=== PATIENT | male | born 1960 | race Caucasian/White ===

== ENCOUNTER → 2021-03-15 | Outpatient (CLI) | payer OTHER ==
[~2021-03-15] MED LIST: CHOL10002 PO; CYCL10 PO; IBUP400 PO; LISI5 PO; METF500 PO; METH5 PO; PRAV20 PO; WARF10 PO; WARF5 PO
[2021-03-15 16:26] LABS: Hematocrit 41.9 % (37.0-53.0); Mean Corpuscular HGB 32.9 pg (26.0-34.0); Mean Corpuscular HGB Conc 35.8 g/dL (31.5-36.5); Mean Corpuscular Volume 92 fL (80-100); Platelet Count 182 K/mm3 (150-400); RDW Coefficient Variation 12.9 % (11.7-14.2); RDW Standard Deviation 43.2 fL (35.1-46.3); Red Blood Cell Count 4.56 M/mm3 (4.30-5.90); White Blood Cell Count 3.56 K/mm3 (4.00-11.30)
[2021-03-15 16:28] LABS: Bun/Creatinine Ratio 14.7 (12.0-20.0); Calcium, Blood 9.4 mg/dL (8.5-10.1); Creatinine, Blood 1.29 mg/dL (0.60-1.20)
[2021-03-15 17:33] LABS: BAND PERCENT MAN 11 % (0-8); BASOPHILS PERCENT MAN 0 % (0-2); EOSINOPHILS PERCENT MAN 0 % (0-6); LYMPHOCYTES ABSOLUTE MAN 0.71 K/mm3 (0.84-5.20); LYMPHOCYTES PERCENT MAN 20 % (21-46); MONOCYTES ABSOLUTE MAN 0.24 K/mm3 (0.16-1.47); MONOCYTES PERCENT MAN 7 % (4-13); NEUTROPHILS ABSOLUTE MAN 2.59 K/mm3 (1.96-9.15); SEG NEUTROPHILS PERCENT MAN 62 % (41-73); TOTAL CELLS COUNTED 100
== END | disposition home or self-care (01) ==
LOC: LAB SHORT 16:20
PROVIDERS: Physician Assistant Surgical
DX: R53.83 Other fatigue (principal)
CPT/HCPCS: 80048; 85025

== ENCOUNTER 2021-08-14 16:45 | Inpatient (IN) | payer OTHER ==
[~2021-08-14] VITALS: Ht 172.7 cm; Wt 84.5 kg
[~2021-08-14 16:45] MED LIST changes: -GLIP2.5ER PO; -K-Phos Origina500 MG PO; -MULVITA PO
[2021-08-14 17:47] LABS: Source, Urine Clean Catch
[2021-08-14 17:51] LABS: Appearance, Urine Clear (Clear); Blood, Urine 4+ (Neg); Color, Urine Amber (P-Yellow); Glucose Qualitative, Urine 4+ (Neg); Ketones, Urine 3+ (Neg); Leukocyte Esterase, Urine Neg (Neg); Nitrite, Urine Neg (Neg); Protein, Urine 3+ (Neg); Urobilinogen, Urine 1+ (Normal)
[2021-08-14 18:01] LABS: Bilirubin, Urine 1+ (Neg)
[2021-08-14 18:02] LABS: White Blood Cells, Urine 0-2 /hpf (0-5)
[2021-08-14 18:03] LABS: Bacteria Few /hpf; Squamous Epithelial Cells Not Seen /hpf (Few); Transitional Epithelial Cells Rare /hpf (0-Rare)
[2021-08-14 18:16] LABS: BASOPHILS ABSOLUTE AUTO 0.03 K/mm3 (0.00-0.23); BASOPHILS PERCENT AUTO 1 % (0-2); EOSINOPHILS ABSOLUTE AUTO 0.03 K/mm3 (0.00-0.68); EOSINOPHILS PERCENT AUTO 1 % (0-6); Hematocrit 38.7 % (37.0-53.0); Hemoglobin 14.4 g/dL (13.5-17.5); IMMATURE GRAN ABSOLUTE AUTO 0.02 K/mm3 (0.00-0.10); IMMATURE GRAN PERCENT AUTO 0 % (0-1); LYMPHOCYTES ABSOLUTE AUTO 0.79 K/mm3 (0.84-5.20); LYMPHOCYTES PERCENT AUTO 15 % (21-46); MONOCYTES ABSOLUTE AUTO 0.64 K/mm3 (0.16-1.47); MONOCYTES PERCENT AUTO 12 % (4-13); Mean Corpuscular HGB 36.6 pg (26.0-34.0); Mean Corpuscular HGB Conc 37.2 g/dL (31.5-36.5); Mean Corpuscular Volume 99 fL (80-100); Mean Platelet Volume 10.9 fL (9.1-12.4); NEUTROPHILS ABSOLUTE AUTO 3.87 K/mm3 (1.96-9.15); NEUTROPHILS PERCENT AUTO 72 % (41-73); Platelet Count 187 K/mm3 (150-400); RDW Coefficient Variation 12.5 % (11.7-14.2); RDW Standard Deviation 45.5 fL (35.1-46.3); Red Blood Cell Count 3.93 M/mm3 (4.30-5.90); White Blood Cell Count 5.38 K/mm3 (4.00-11.30)
[2021-08-14 18:56] LABS: Magnesium, Blood 2.5 mg/dL (1.6-2.4)
[2021-08-14 19:03] LABS: Bun/Creatinine Ratio 20.8 (12.0-20.0); Calcium, Blood 11.8 mg/dL (8.5-10.1); Creatinine, Blood 2.5 mg/dL (0.60-1.20); Potassium, Blood 6.3 mmol/L (3.5-5.5)
[2021-08-14 21:38] LABS: International Normalized Ratio 1.1; Prothrombin Time Results 11.5 Sec (9.7-11.5)
[2021-08-14 21:55] LABS: Albumin, Blood 4.8 g/dL (3.4-5.0); Anion Gap 14 mmol/L (6-16); Blood Urea Nitrogen 52 mg/dL (8-24); Bun/Creatinine Ratio 23.1 (12.0-20.0); CO2, Blood 26 mmol/L (21-32); Calcium, Blood 11.3 mg/dL (8.5-10.1); Chloride, Blood 91 mmol/L (98-108); Creatinine, Blood 2.25 mg/dL (0.60-1.20); Glomerular Filtration Rate 33 (60-); Glucose, Blood 232 mg/dL (70-99); Phosphorus, Blood 4.4 mg/dL (2.5-4.9); Potassium, Blood 4.7 mmol/L (3.5-5.5); Sodium, Blood 131 mmol/L (136-145)
[2021-08-15 05:33] LABS: BASOPHILS ABSOLUTE AUTO 0.03 K/mm3 (0.00-0.23); BASOPHILS PERCENT AUTO 1 % (0-2); EOSINOPHILS ABSOLUTE AUTO 0.15 K/mm3 (0.00-0.68); EOSINOPHILS PERCENT AUTO 4 % (0-6); Hematocrit 35.9 % (37.0-53.0); Hemoglobin 12.8 g/dL (13.5-17.5); IMMATURE GRAN ABSOLUTE AUTO 0.01 K/mm3 (0.00-0.10); IMMATURE GRAN PERCENT AUTO 0 % (0-1); LYMPHOCYTES ABSOLUTE AUTO 1.09 K/mm3 (0.84-5.20); LYMPHOCYTES PERCENT AUTO 28 % (21-46); MONOCYTES PERCENT AUTO 13 % (4-13); Mean Corpuscular HGB 36.1 pg (26.0-34.0); Mean Corpuscular HGB Conc 35.7 g/dL (31.5-36.5); Mean Corpuscular Volume 101 fL (80-100); Mean Platelet Volume 10.8 fL (9.1-12.4); NEUTROPHILS ABSOLUTE AUTO 2.15 K/mm3 (1.96-9.15); NEUTROPHILS PERCENT AUTO 55 % (41-73); Platelet Count 125 K/mm3 (150-400); RDW Coefficient Variation 12.2 % (11.7-14.2); RDW Standard Deviation 45.1 fL (35.1-46.3); Red Blood Cell Count 3.55 M/mm3 (4.30-5.90); White Blood Cell Count 3.93 K/mm3 (4.00-11.30)
[2021-08-15 05:47] LABS: International Normalized Ratio 1.14; Prothrombin Time Results 11.9 Sec (9.7-11.5)
[2021-08-15 06:00] LABS: Albumin, Blood 4.2 g/dL (3.4-5.0); Albumin/Globulin Ratio 1.2 (0.8-1.8); Bilirubin, Total 1.7 mg/dL (0.1-1.0); Bun/Creatinine Ratio 24.3 (12.0-20.0); Calcium, Blood 9.9 mg/dL (8.5-10.1); Creatinine, Blood 2.14 mg/dL (0.60-1.20); Globulin, Blood 3.6 g/dL (2.2-4.0); Potassium, Blood 4.4 mmol/L (3.5-5.5); Total Protein, Blood 7.8 g/dL (6.4-8.2)
--- NOTE | 2021-08-15 06:19 | NUR ---
SHIFT SUMMARY PATIENT ARRIVED TO ROOM 312 AT 2148. HE IS ALERT AND ORIENTED. MEDICATED PER EMAR FOR HEADACHE. CIWA WAS NEGATIVE. PATIENT STEADY ON HIS FEET AND INDEPENDENT IN ROOM. PATIENT SLEPT WELL OVERNIGHT. NO ACUTE ISSUES NOTED. CALL LIGHT WITHIN REACH. REPORT GIVEN TO ONCOMING RN.
--- NOTE | 2021-08-15 16:34 | NUR ---
SHIFT SUMMARY PT A&OX4 AND IN PLEASENT MOOD T/O SHIFT. @ BEDSIDE T/O SHIFT. CIWA NEG, PT REFUSED LIBRIUM WHEN OFFERED-DENIES SYMPTOMS/ANXIETY. LAST DRINK YESTERDAY @ APPROX. 10AM. VSS. CALL LIGHT W/IN REACH. NS @ 75 INFUSING. BLOOD GLUCOSE REPORTED TO - SLIDE SCALE ADJUSTED TO LOW FROM HIGH COVERAGE.
[2021-08-15 16:48] LABS: Albumin, Blood 3.9 g/dL (3.4-5.0); Anion Gap 7 mmol/L (6-16); Blood Urea Nitrogen 48 mg/dL (8-24); CO2, Blood 28 mmol/L (21-32); Calcium, Blood 9.3 mg/dL (8.5-10.1); Chloride, Blood 93 mmol/L (98-108); Creatinine, Blood 1.78 mg/dL (0.60-1.20); Glomerular Filtration Rate 43 (60-); Glucose, Blood 232 mg/dL (70-99); Phosphorus, Blood 3.4 mg/dL (2.5-4.9); Potassium, Blood 4.5 mmol/L (3.5-5.5); Sodium, Blood 128 mmol/L (136-145)
--- NOTE | 2021-08-16 04:43 | NUR ---
SHIFT SUMMARY ADMITTED FOR YENNY. FULL CODE. CIWAS Q 4 HAVE BEEN 0 THIS SHIFT. PT DENIES S/SX OF WITHDRAWAL. NS INFUSING @ 75 ML/HR. RENAL DIET. ACHS CHEMSTICKS. A&O X4. INDEPENDENT IN ROOM. ON RA. LOW SS. HX: ETOH, DM2.
[2021-08-16 05:33] LABS: International Normalized Ratio 1.16; Prothrombin Time Results 12.1 Sec (9.7-11.5)
[2021-08-16 05:39] LABS: Albumin, Blood 3.9 g/dL (3.4-5.0); Anion Gap 9 mmol/L (6-16); Blood Urea Nitrogen 43 mg/dL (8-24); Bun/Creatinine Ratio 29.9 (12.0-20.0); CO2, Blood 27 mmol/L (21-32); Chloride, Blood 97 mmol/L (98-108); Creatinine, Blood 1.44 mg/dL (0.60-1.20); Glomerular Filtration Rate 56 (60-); Glucose, Blood 205 mg/dL (70-99); Potassium, Blood 4.1 mmol/L (3.5-5.5); Sodium, Blood 133 mmol/L (136-145)
[2021-08-16 12:40] LABS: Albumin, Blood 3.9 g/dL (3.4-5.0); Anion Gap 7 mmol/L (6-16); Blood Urea Nitrogen 39 mg/dL (8-24); Bun/Creatinine Ratio 30.2 (12.0-20.0); CO2, Blood 26 mmol/L (21-32); Calcium, Blood 8.9 mg/dL (8.5-10.1); Chloride, Blood 96 mmol/L (98-108); Creatinine, Blood 1.29 mg/dL (0.60-1.20); Glomerular Filtration Rate 64 (60-); Glucose, Blood 329 mg/dL (70-99); Phosphorus, Blood 2.2 mg/dL (2.5-4.9); Potassium, Blood 4.4 mmol/L (3.5-5.5); Sodium, Blood 129 mmol/L (136-145)
[2021-08-16] MEDS ORDERED: MULVITA PO (15:18)
[2021-08-16] MEDS ORDERED: GLIP2.5ER PO (15:19)
[2021-08-16] MEDS ORDERED: K-Phos Origina500 MG PO (15:26)
[2021-08-16] MEDS ORDERED: WARF10 PO (15:27)
--- NOTE | 2021-08-16 16:48 | NUR ---
DISCHARGE PT A&OX4 @ TIME OF DC. SPOUSE @ BEDSIDE. PT PROVIDED W/ WRITTEN AND VERBAL DIRECTION, PT VERBALIZED UNDERSTANDING. IV DC'ED. PT ENCOURAGED TO ESTABLISH PCP, IMPORTANCE OF REPEAT INR W/ PRESCRIBED COUMADIN REENFORCED. WC ESCORT TO [place], SPOUSE TO PROVIDE TRANSPORT.
== END 2021-08-16 16:45 | disposition home or self-care (01) | DRG 683 ==
LOC: ER 16:45 → MEDS 20:08
PROVIDERS: Family Medicine; Internal Medicine; Physician Assistant; Student in an Organized Health Care Education/Training Program; ADMIT Internal Medicine
DX: N17.9 Acute kidney failure, unspecified (principal); D68.59 Other primary thrombophilia; E87.1 Hypo-osmolality and hyponatremia; E87.5 Hyperkalemia; E86.0 Dehydration; E11.65 Type 2 diabetes mellitus with hyperglycemia; E83.39 Other disorders of phosphorus metabolism; R74.01 Elevation of levels of liver transaminase levels; F10.10 Alcohol abuse, uncomplicated; I10 Essential (primary) hypertension; Z79.01 Long term (current) use of anticoagulants; Z91.14 Patient's other noncompliance with medication regimen; Z98.890 Other specified postprocedural states; Z87.891 Personal history of nicotine dependence; Z88.8 Allergy status to other drugs, medicaments and biological substances; Z79.84 Long term (current) use of oral hypoglycemic drugs; Z79.899 Other long term (current) drug therapy
CPT/HCPCS: 36415; 80048; 80053; 80069; 81001; 82010; 82947; 83036; 83735; 83930; 83935; 84300; 84484; 85025; 85610; 93005; 93010; 96361; 96374; 99284-25; A9270; J1650; J1815; J2405; J7030; J7060; J7799

== ENCOUNTER → 2021-08-14 | Outpatient (CLI) | payer OTHER ==
[~2021-08-14] MED LIST changes: +GLIP2.5ER PO; +K-Phos Origina500 MG PO; +MULVITA PO
[2021-08-14 16:06] LABS: BASOPHILS ABSOLUTE AUTO 0.03 K/mm3 (0.00-0.23); BASOPHILS PERCENT AUTO 1 % (0-2); EOSINOPHILS ABSOLUTE AUTO 0.05 K/mm3 (0.00-0.68); EOSINOPHILS PERCENT AUTO 1 % (0-6); Hematocrit 39.5 % (37.0-53.0); Hemoglobin 14.3 g/dL (13.5-17.5); IMMATURE GRAN ABSOLUTE AUTO 0.03 K/mm3 (0.00-0.10); IMMATURE GRAN PERCENT AUTO 1 % (0-1); LYMPHOCYTES ABSOLUTE AUTO 0.93 K/mm3 (0.84-5.20); LYMPHOCYTES PERCENT AUTO 15 % (21-46); MONOCYTES ABSOLUTE AUTO 0.72 K/mm3 (0.16-1.47); MONOCYTES PERCENT AUTO 12 % (4-13); Mean Corpuscular HGB 36.1 pg (26.0-34.0); Mean Corpuscular HGB Conc 36.2 g/dL (31.5-36.5); Mean Corpuscular Volume 100 fL (80-100); Mean Platelet Volume 10.6 fL (9.1-12.4); NEUTROPHILS ABSOLUTE AUTO 4.52 K/mm3 (1.96-9.15); NEUTROPHILS PERCENT AUTO 72 % (41-73); Platelet Count 204 K/mm3 (150-400); RDW Coefficient Variation 12.6 % (11.7-14.2); RDW Standard Deviation 46.1 fL (35.1-46.3); Red Blood Cell Count 3.96 M/mm3 (4.30-5.90); White Blood Cell Count 6.28 K/mm3 (4.00-11.30)
[2021-08-14 16:18] LABS: Albumin, Blood 5.3 g/dL (3.4-5.0); Albumin/Globulin Ratio 1.3 (0.8-1.8); Bilirubin, Total 2.4 mg/dL (0.1-1.0); Bun/Creatinine Ratio 16.7 (12.0-20.0); Calcium, Blood 11.8 mg/dL (8.5-10.1); Creatinine, Blood 2.93 mg/dL (0.60-1.20); Globulin, Blood 4.1 g/dL (2.2-4.0); Total Protein, Blood 9.4 g/dL (6.4-8.2)
[2021-08-14 16:20] LABS: Potassium, Blood 6.7 mmol/L (3.5-5.5)
== END | disposition home or self-care (01) ==
LOC: LAB SHORT 16:03
PROVIDERS: Chiropractor
DX: I10 Essential (primary) hypertension (principal)
CPT/HCPCS: 80053; 85025

== ENCOUNTER 2022-01-13 00:57 | Emergency (ER) | payer OTHER ==
[~2022-01-13 00:57] MED LIST changes: +GLIP2.5ER PO; +K-Phos Origina500 MG PO; +MULVITA PO
[2022-01-13] MEDS ORDERED: CHLO25 PO (04:33)
== END 2022-01-13 05:06 | disposition home or self-care (01) ==
DX: F10.939 Alcohol use, unspecified with withdrawal, unspecified (principal); I10 Essential (primary) hypertension; E11.9 Type 2 diabetes mellitus without complications; Z88.8 Allergy status to other drugs, medicaments and biological substances; Z79.4 Long term (current) use of insulin; Z79.01 Long term (current) use of anticoagulants; Z79.899 Other long term (current) drug therapy; Z20.822 Contact with and (suspected) exposure to COVID-19

== ENCOUNTER 2022-02-26 22:27 | Observation (INO) | payer OTHER ==
[~2022-02-26] VITALS: Ht 172.7 cm; Wt 92.5 kg
[~2022-02-26 22:27] MED LIST changes: +CHLO25 PO; -LISI5 PO; +Prinivil10 MG PO
[2022-02-26 23:17] LABS: BASOPHILS ABSOLUTE AUTO 0.06 K/mm3 (0.00-0.23); BASOPHILS PERCENT AUTO 1 % (0-2); EOSINOPHILS ABSOLUTE AUTO 0.22 K/mm3 (0.00-0.68); EOSINOPHILS PERCENT AUTO 4 % (0-6); Hematocrit 37.7 % (37.0-53.0); Hemoglobin 13.8 g/dL (13.5-17.5); IMMATURE GRAN ABSOLUTE AUTO 0.02 K/mm3 (0.00-0.10); IMMATURE GRAN PERCENT AUTO 0 % (0-1); LYMPHOCYTES ABSOLUTE AUTO 2.22 K/mm3 (0.84-5.20); LYMPHOCYTES PERCENT AUTO 35 % (21-46); MONOCYTES ABSOLUTE AUTO 0.48 K/mm3 (0.16-1.47); MONOCYTES PERCENT AUTO 8 % (4-13); Mean Corpuscular HGB 35.5 pg (26.0-34.0); Mean Corpuscular HGB Conc 36.6 g/dL (31.5-36.5); Mean Corpuscular Volume 97 fL (80-100); Mean Platelet Volume 9.6 fL (9.1-12.4); NEUTROPHILS ABSOLUTE AUTO 3.29 K/mm3 (1.96-9.15); NEUTROPHILS PERCENT AUTO 52 % (41-73); Platelet Count 161 K/mm3 (150-400); RDW Coefficient Variation 11.1 % (11.7-14.2); RDW Standard Deviation 39.7 fL (35.1-46.3); Red Blood Cell Count 3.89 M/mm3 (4.30-5.90); White Blood Cell Count 6.29 K/mm3 (4.00-11.30)
[2022-02-26 23:40] LABS: Albumin, Blood 4.3 g/dL (3.4-5.0); Albumin/Globulin Ratio 1.2 (0.8-1.8); Bilirubin, Total 0.6 mg/dL (0.1-1.0); Bun/Creatinine Ratio 12.6 (12.0-20.0); Calcium, Blood 9.1 mg/dL (8.5-10.1); Creatinine, Blood 0.87 mg/dL (0.60-1.20); Globulin, Blood 3.5 g/dL (2.2-4.0); Potassium, Blood 4.1 mmol/L (3.5-5.5); Total Protein, Blood 7.8 g/dL (6.4-8.2)
[2022-02-27 02:32] LABS: International Normalized Ratio 1.07; Prothrombin Time Results 11.2 Sec (9.7-11.5)
[2022-02-27 05:56] LABS: BASOPHILS ABSOLUTE AUTO 0.04 K/mm3 (0.00-0.23); BASOPHILS PERCENT AUTO 1 % (0-2); EOSINOPHILS PERCENT AUTO 6 % (0-6); Hematocrit 37.1 % (37.0-53.0); Hemoglobin 13.4 g/dL (13.5-17.5); IMMATURE GRAN ABSOLUTE AUTO 0.01 K/mm3 (0.00-0.10); IMMATURE GRAN PERCENT AUTO 0 % (0-1); LYMPHOCYTES PERCENT AUTO 33 % (21-46); MONOCYTES ABSOLUTE AUTO 0.32 K/mm3 (0.16-1.47); MONOCYTES PERCENT AUTO 10 % (4-13); Mean Corpuscular HGB 35.4 pg (26.0-34.0); Mean Corpuscular HGB Conc 36.1 g/dL (31.5-36.5); Mean Corpuscular Volume 98 fL (80-100); Mean Platelet Volume 9.8 fL (9.1-12.4); NEUTROPHILS ABSOLUTE AUTO 1.63 K/mm3 (1.96-9.15); NEUTROPHILS PERCENT AUTO 49 % (41-73); Platelet Count 129 K/mm3 (150-400); RDW Coefficient Variation 11.2 % (11.7-14.2); RDW Standard Deviation 40.3 fL (35.1-46.3); Red Blood Cell Count 3.79 M/mm3 (4.30-5.90)
[2022-02-27 06:13] LABS: International Normalized Ratio 1.09; Prothrombin Time Results 11.4 Sec (9.7-11.5)
[2022-02-27 06:24] LABS: Magnesium, Blood 1.7 mg/dL (1.6-2.4)
[2022-02-27 06:29] LABS: Alanine Aminotransfer (ALT/SGP 66 U/L (12-78); Albumin/Globulin Ratio 1.2 (0.8-1.8); Alk Phos 60 U/L (50-136); Anion Gap 11 mmol/L (6-16); Aspartate Aminotrans (AST/SGOT 70 U/L (12-37); Bilirubin, Total 0.7 mg/dL (0.1-1.0); Blood Urea Nitrogen 10 mg/dL (8-24); CHOL/HDL RATIO 2.9; CO2, Blood 24 mmol/L (21-32); Calcium, Blood 9.1 mg/dL (8.5-10.1); Chloride, Blood 105 mmol/L (98-108); Cholesterol 270 mg/dL (50-200); Globulin, Blood 3.3 g/dL (2.2-4.0); Glucose, Blood 202 mg/dL (70-99); HDL Cholesterol 93 mg/dL (>39); LDL/HDL RATIO 1.4; Low Density Lipoprotein Chol 135 mg/dL (0-110); Potassium, Blood 4.7 mmol/L (3.5-5.5); Sodium, Blood 140 mmol/L (136-145); Total Protein, Blood 7.3 g/dL (6.4-8.2); Triglycerides 212 mg/dL (30-160); Very Low Density Lipoprot Chol 42 mg/dL (6-32)
[2022-02-27 06:31] LABS: Bun/Creatinine Ratio 10.8 (12.0-20.0); Creatinine, Blood 0.93 mg/dL (0.60-1.20); Glomerular Filtration Rate 94 (60-)
[2022-02-27 08:03] LABS: International Normalized Ratio 1.09; Prothrombin Time Results 11.4 Sec (9.7-11.5)
[2022-02-27 08:45] LABS: Cholesterol 271 mg/dL (50-200); HDL Cholesterol 89 mg/dL (>39); LDL/HDL RATIO 1.7; Low Density Lipoprotein Chol 148 mg/dL (0-110); Triglycerides 172 mg/dL (30-160); Very Low Density Lipoprot Chol 34 mg/dL (6-32)
[2022-02-27] MEDS ORDERED: METO50ER PO (10:35)
--- NOTE | 2022-02-27 18:18 | NUR ---
ALERT AND ORIENTED, MAKES NEEDS KNOWN, ARM TREMOR DECREASING, MEDICATED FOR PAIN AND NAUSEA, PATIENT REPORTS ADEQUATE RELIEF OF NAUSEA AND PAIN, NOT ACUTE CHANGES, PROBLY GOING HOME TOMORROW, AT BEDSIDE HELPFUL WITH CARE, CALL LIGHT WITH IN REACH
--- NOTE | 2022-02-27 20:14 | NUR ---
Patient states he is not Suicidal or homicidal. States his assessment was not properly received in the ED. States he said he came to the hospital as he was concerned by the amount of alcohol he was drinking and withdraw symptom, "I am afraid I might go to sleep and not wake up because of drinking and thats why I need help to quit." He declines any prior history of SI,
[2022-02-28 07:57] LABS: BASOPHILS ABSOLUTE AUTO 0.03 K/mm3 (0.00-0.23); BASOPHILS PERCENT AUTO 1 % (0-2); EOSINOPHILS ABSOLUTE AUTO 0.24 K/mm3 (0.00-0.68); EOSINOPHILS PERCENT AUTO 5 % (0-6); Hematocrit 37.3 % (37.0-53.0); Hemoglobin 13.5 g/dL (13.5-17.5); IMMATURE GRAN ABSOLUTE AUTO 0.01 K/mm3 (0.00-0.10); IMMATURE GRAN PERCENT AUTO 0 % (0-1); LYMPHOCYTES ABSOLUTE AUTO 0.92 K/mm3 (0.84-5.20); LYMPHOCYTES PERCENT AUTO 20 % (21-46); MONOCYTES ABSOLUTE AUTO 0.31 K/mm3 (0.16-1.47); MONOCYTES PERCENT AUTO 7 % (4-13); Mean Corpuscular HGB 35.5 pg (26.0-34.0); Mean Corpuscular HGB Conc 36.2 g/dL (31.5-36.5); Mean Corpuscular Volume 98 fL (80-100); Mean Platelet Volume 10.7 fL (9.1-12.4); NEUTROPHILS ABSOLUTE AUTO 3.13 K/mm3 (1.96-9.15); NEUTROPHILS PERCENT AUTO 68 % (41-73); Platelet Count 125 K/mm3 (150-400); RDW Coefficient Variation 10.9 % (11.7-14.2); RDW Standard Deviation 39.8 fL (35.1-46.3); White Blood Cell Count 4.64 K/mm3 (4.00-11.30)
[2022-02-28 08:52] LABS: Bun/Creatinine Ratio 11.1 (12.0-20.0); Creatinine, Blood 0.99 mg/dL (0.60-1.20); Potassium, Blood 4.1 mmol/L (3.5-5.5)
--- NOTE | 2022-02-28 12:02 | NUR ---
DISCHARGE SUMMARY DISCHARGE, FOLLOWUP, AND MEDICATION INSTRUCTIONS GIVEN TO PT. PT VOICED COMPLET UNDERSTANDING AND HAS NO QUESTIONS AT THIS TIME. IV REMOVED WITH CATHETER TIP INTACT. WILL CONTINUE TO MONITOR UNTIL PT'S RIDE ARRIVES.
== END 2022-02-28 14:54 | disposition home or self-care (01) ==
LOC: ER 22:27 → MEDS 22:28
PROVIDERS: Emergency Medicine; Family Medicine; ADMIT Family Medicine
DX: R07.89 Other chest pain (principal); F10.10 Alcohol abuse, uncomplicated; Y90.9 Presence of alcohol in blood, level not specified; E11.9 Type 2 diabetes mellitus without complications; Z79.84 Long term (current) use of oral hypoglycemic drugs; I10 Essential (primary) hypertension; D68.59 Other primary thrombophilia
CPT/HCPCS: 36415; 71045; 80048; 80053; 80061; 82947; 83036; 83735; 84443; 84484; 85025; 85610; 85730; 93005; 93010; 93306; 94762; 96361; 96365; 96375; 96376; 99285-25; A9270; G0378; G0480; J2060; J3411; J7030

== ENCOUNTER 2022-08-21 08:08 | Day surgery (SDC) | payer OTHER ==
[~2022-08-21] VITALS: Ht 172.7 cm; Wt 80.2 kg
[~2022-08-21 08:08] MED LIST changes: +ATORVASTATIN CA20 MG PO; +GABA100 PO; +LISI20 PO; +METO50ER PO
[2022-08-21] MEDS ORDERED: HYDCHL25 (08:43)
--- NOTE | 2022-08-21 08:50 | NUR ---
08/21/22 0850 Nayana Atwood 0843 TETRACAINE ADMINISTERED TO THE L EYE, 0845 PLEDGET PLACED IN THE L EYE
[2022-08-21 10:08] VITALS: BP 173/93
== END 2022-08-21 10:17 | disposition home or self-care (01) ==
LOC: ORSCSDS 08:08
PROVIDERS: Ophthalmology
PROC: 08RK3JZ Replacement of Left Lens with Synthetic Substitute, Percutaneous Approach (ICD-10-PCS; principal; 2022-08-21 09:30)
DX: E11.36 Type 2 diabetes mellitus with diabetic cataract (principal); H25.12 Age-related nuclear cataract, left eye; H52.202 Unspecified astigmatism, left eye; Z96.1 Presence of intraocular lens; E11.40 Type 2 diabetes mellitus with diabetic neuropathy, unspecified; I10 Essential (primary) hypertension; K21.9 Gastro-esophageal reflux disease without esophagitis; Z79.899 Other long term (current) drug therapy; Z79.84 Long term (current) use of oral hypoglycemic drugs; Z87.891 Personal history of nicotine dependence
CPT/HCPCS: 82947; J2001; J2250; J3010; J3301; J7040; V2632

== ENCOUNTER 2022-09-08 11:24 | Emergency (ER) | payer OTHER ==
[~2022-09-08] VITALS: Ht 172.7 cm; Wt 77.6 kg
[~2022-09-08 11:24] MED LIST changes: +HYDCHL25
[2022-09-08 12:15] LABS: BASOPHILS ABSOLUTE AUTO 0.02 K/mm3 (0.00-0.23); BASOPHILS PERCENT AUTO 0 % (0-2); EOSINOPHILS ABSOLUTE AUTO 0.14 K/mm3 (0.00-0.68); EOSINOPHILS PERCENT AUTO 3 % (0-6); Hemoglobin 16.3 g/dL (13.5-17.5); IMMATURE GRAN ABSOLUTE AUTO 0.01 K/mm3 (0.00-0.10); IMMATURE GRAN PERCENT AUTO 0 % (0-1); LYMPHOCYTES ABSOLUTE AUTO 1.73 K/mm3 (0.84-5.20); LYMPHOCYTES PERCENT AUTO 32 % (21-46); MONOCYTES ABSOLUTE AUTO 0.36 K/mm3 (0.16-1.47); MONOCYTES PERCENT AUTO 7 % (4-13); Mean Corpuscular HGB 34.5 pg (26.0-34.0); Mean Corpuscular HGB Conc 34.7 g/dL (31.5-36.5); Mean Corpuscular Volume 99 fL (80-100); Mean Platelet Volume 10.7 fL (9.1-12.4); NEUTROPHILS ABSOLUTE AUTO 3.18 K/mm3 (1.96-9.15); NEUTROPHILS PERCENT AUTO 58 % (41-73); Platelet Count 136 K/mm3 (150-400); RDW Coefficient Variation 11.9 % (11.7-14.2); RDW Standard Deviation 43.8 fL (35.1-46.3); Red Blood Cell Count 4.73 M/mm3 (4.30-5.90); White Blood Cell Count 5.44 K/mm3 (4.00-11.30)
[2022-09-08 12:32] LABS: Albumin, Blood 4.5 g/dL (3.4-5.0); Albumin/Globulin Ratio 1.2 (0.8-1.8); Bilirubin, Total 0.9 mg/dL (0.1-1.0); Bun/Creatinine Ratio 21.8 (12.0-20.0); Calcium, Blood 9.4 mg/dL (8.5-10.1); Creatinine, Blood 1.1 mg/dL (0.60-1.20); Globulin, Blood 3.6 g/dL (2.2-4.0); Magnesium, Blood 1.8 mg/dL (1.6-2.4); Phosphorus, Blood 3.5 mg/dL (2.5-4.9); Potassium, Blood 5.2 mmol/L (3.5-5.5); Total Protein, Blood 8.1 g/dL (6.4-8.2)
[2022-09-08] MEDS ORDERED: CHLO25 PO (16:55)
[2022-09-08 17:30] VITALS: BP 170/105
== END 2022-09-08 17:51 | disposition home or self-care (01) ==
LOC: ER 11:24
PROVIDERS: Physician Assistant
DX: F10.229 Alcohol dependence with intoxication, unspecified (principal); F10.239 Alcohol dependence with withdrawal, unspecified; I10 Essential (primary) hypertension; E11.9 Type 2 diabetes mellitus without complications; Z79.84 Long term (current) use of oral hypoglycemic drugs; Z79.899 Other long term (current) drug therapy; Y90.8 Blood alcohol level of 240 mg/100 ml or more
CPT/HCPCS: 80053; 83690; 83735; 84100; 85025; 96374; 99284-25; A9270; G0480; J2060

== ENCOUNTER 2022-11-04 01:31 | Emergency (ER) | payer OTHER ==
[~2022-11-04] VITALS: Ht 170.2 cm; Wt 72.6 kg
[2022-11-04 04:21] VITALS: BP 171/107
[2022-11-04] MEDS ORDERED: CHLO25 PO ×2 (05:58)
== END 2022-11-04 06:07 | disposition home or self-care (01) ==
LOC: ER 01:31
DX: F10.139 Alcohol abuse with withdrawal, unspecified (principal); I10 Essential (primary) hypertension; E11.9 Type 2 diabetes mellitus without complications; Z79.84 Long term (current) use of oral hypoglycemic drugs; Z79.899 Other long term (current) drug therapy; Z88.8 Allergy status to other drugs, medicaments and biological substances
CPT/HCPCS: 99284; A9270

== ENCOUNTER 2022-11-15 20:15 | Emergency (ER) | payer OTHER ==
[~2022-11-15] VITALS: Ht 172.7 cm; Wt 72.6 kg
[2022-11-16 01:00] VITALS: BP 137/86
== END 2022-11-16 01:13 | disposition short-term general hospital (02) ==
LOC: ER 20:15
DX: S06.5X0A Traumatic subdural hemorrhage without loss of consciousness, initial encounter (principal); S01.112A Laceration without foreign body of left eyelid and periocular area, initial encounter; E11.9 Type 2 diabetes mellitus without complications; I10 Essential (primary) hypertension; F10.129 Alcohol abuse with intoxication, unspecified; R40.2362 Coma scale, best motor response, obeys commands, at arrival to emergency department; R40.2142 Coma scale, eyes open, spontaneous, at arrival to emergency department; R40.2252 Coma scale, best verbal response, oriented, at arrival to emergency department; Z88.8 Allergy status to other drugs, medicaments and biological substances; Z79.899 Other long term (current) drug therapy; Z79.84 Long term (current) use of oral hypoglycemic drugs; W22.09XA Striking against other stationary object, initial encounter; Y92.009 Unspecified place in unspecified non-institutional (private) residence as the place of occurrence of the external cause
CPT/HCPCS: 12011; 70450; 82947; 96374; 99285-25

== ENCOUNTER 2023-06-21 20:18 | Emergency (ER) | payer OTHER ==
[~2023-06-21] VITALS: Ht 172.7 cm; Wt 79.8 kg
[~2023-06-21 20:18] MED LIST changes: +ASPERFLEX1 EACH TOP; +GABA300 PO; +Norco 5-325 Ta1 EACH PO
[2023-06-21 20:37] VITALS: BP 195/109
[2023-06-21] MEDS ORDERED: HYDPAM50 PO (20:42)
[2023-06-21] MEDS ORDERED: TRAZ50 PO (20:42)
[2023-06-21] MEDS ORDERED: FLUO10 PO (20:43)
== END 2023-06-21 20:50 | disposition home or self-care (01) ==
LOC: ER 20:18
DX: I10 Essential (primary) hypertension (principal); E11.36 Type 2 diabetes mellitus with diabetic cataract; H26.9 Unspecified cataract; D68.2 Hereditary deficiency of other clotting factors; Z88.8 Allergy status to other drugs, medicaments and biological substances; Z79.84 Long term (current) use of oral hypoglycemic drugs; Z79.899 Other long term (current) drug therapy
CPT/HCPCS: 99283

== ENCOUNTER → 2023-08-21 | Outpatient (CLI) | payer OTHER ==
[~2023-08-21] MED LIST changes: +FLUO10 PO; +HYDPAM50 PO; +TRAZ50 PO
[2023-08-21 12:54] LABS: BASOPHILS ABSOLUTE AUTO 0.05 K/mm3 (0.00-0.23); BASOPHILS PERCENT AUTO 1 % (0-2); EOSINOPHILS ABSOLUTE AUTO 0.28 K/mm3 (0.00-0.68); EOSINOPHILS PERCENT AUTO 5 % (0-6); Hematocrit 38.6 % (37.0-53.0); Hemoglobin 13.5 g/dL (13.5-17.5); IMMATURE GRAN ABSOLUTE AUTO 0.02 K/mm3 (0.00-0.10); IMMATURE GRAN PERCENT AUTO 0 % (0-1); LYMPHOCYTES ABSOLUTE AUTO 1.14 K/mm3 (0.84-5.20); LYMPHOCYTES PERCENT AUTO 19 % (21-46); MONOCYTES ABSOLUTE AUTO 0.55 K/mm3 (0.16-1.47); MONOCYTES PERCENT AUTO 9 % (4-13); Mean Corpuscular HGB 31.8 pg (26.0-34.0); Mean Corpuscular Volume 91 fL (80-100); NEUTROPHILS ABSOLUTE AUTO 3.86 K/mm3 (1.96-9.15); NEUTROPHILS PERCENT AUTO 66 % (41-73); Platelet Count 276 K/mm3 (150-400); RDW Coefficient Variation 12.5 % (11.7-14.2); RDW Standard Deviation 41.1 fL (35.1-46.3); Red Blood Cell Count 4.24 M/mm3 (4.30-5.90)
[2023-08-21 13:02] LABS: Albumin, Blood 3.6 g/dL (3.4-5.0); Albumin/Globulin Ratio 0.8 (0.8-1.8); Bilirubin, Total 0.6 mg/dL (0.1-1.0); Bun/Creatinine Ratio 15.4 (12.0-20.0); Calcium, Blood 9.5 mg/dL (8.5-10.1); Creatinine, Blood 1.43 mg/dL (0.60-1.20); Globulin, Blood 4.6 g/dL (2.2-4.0); Potassium, Blood 4.6 mmol/L (3.5-5.5); Total Protein, Blood 8.2 g/dL (6.4-8.2); Uric Acid, Blood 5.6 mg/dL (3.5-7.2)
== END ==
LOC: LAB 12:47 → LAB SHORT 12:47
PROVIDERS: Physician Assistant
DX: M25.50 Pain in unspecified joint (principal)
CPT/HCPCS: 80053; 84550; 85025; 85651; 86140

== ENCOUNTER → 2023-09-11 | Outpatient (CLI) | payer OTHER ==
[2023-09-11 18:35] LABS: BASOPHILS ABSOLUTE AUTO 0.03 K/mm3 (0.00-0.23); BASOPHILS PERCENT AUTO 1 % (0-2); EOSINOPHILS ABSOLUTE AUTO 0.19 K/mm3 (0.00-0.68); EOSINOPHILS PERCENT AUTO 3 % (0-6); Hematocrit 43.6 % (37.0-53.0); Hemoglobin 15.1 g/dL (13.5-17.5); IMMATURE GRAN ABSOLUTE AUTO 0.01 K/mm3 (0.00-0.10); IMMATURE GRAN PERCENT AUTO 0 % (0-1); LYMPHOCYTES PERCENT AUTO 30 % (21-46); MONOCYTES ABSOLUTE AUTO 0.42 K/mm3 (0.16-1.47); MONOCYTES PERCENT AUTO 7 % (4-13); Mean Corpuscular HGB 30.6 pg (26.0-34.0); Mean Corpuscular HGB Conc 34.6 g/dL (31.5-36.5); Mean Corpuscular Volume 88 fL (80-100); Mean Platelet Volume 11.2 fL (9.1-12.4); NEUTROPHILS ABSOLUTE AUTO 3.89 K/mm3 (1.96-9.15); NEUTROPHILS PERCENT AUTO 60 % (41-73); Platelet Count 209 K/mm3 (150-400); RDW Coefficient Variation 12.7 % (11.7-14.2); RDW Standard Deviation 41.2 fL (35.1-46.3); Red Blood Cell Count 4.93 M/mm3 (4.30-5.90); White Blood Cell Count 6.44 K/mm3 (4.00-11.30)
[2023-09-11 19:21] LABS: Alanine Aminotransfer (ALT/SGP 22 U/L (12-78); Albumin, Blood 4.3 g/dL (3.4-5.0); Albumin/Globulin Ratio 1.1 (0.8-1.8); Alk Phos 84 U/L (50-136); Anion Gap 18 mmol/L (3-11); Aspartate Aminotrans (AST/SGOT 13 U/L (12-37); Bilirubin, Total 0.4 mg/dL (0.1-1.0); Blood Urea Nitrogen 29 mg/dL (8-24); Bun/Creatinine Ratio 24.6 (12.0-20.0); CHOL/HDL RATIO 4.2; CO2, Blood 22 mmol/L (21-32); Calcium, Blood 9.1 mg/dL (8.5-10.1); Chloride, Blood 104 mmol/L (98-108); Cholesterol 238 mg/dL (50-200); Creatinine, Blood 1.18 mg/dL (0.60-1.20); Globulin, Blood 3.8 g/dL (2.2-4.0); Glomerular Filtration Rate 70 (60-); Glucose, Blood 277 mg/dL (70-99); HDL Cholesterol 57 mg/dL (>39); LDL/HDL RATIO 2.2; Low Density Lipoprotein Chol 125 mg/dL (0-110); Potassium, Blood 4.5 mmol/L (3.5-5.5); Prostate Specific Antigen 0.937 ng/mL (0.000-4.000); Sodium, Blood 139 mmol/L (136-145); Total Protein, Blood 8.1 g/dL (6.4-8.2); Triglycerides 279 mg/dL (30-160); Very Low Density Lipoprot Chol 55 mg/dL (6-32)
== END | disposition home or self-care (01) ==
LOC: LAB SHORT 17:40 → LAB 17:40
PROVIDERS: Family Medicine
DX: Z12.5 Encounter for screening for malignant neoplasm of prostate (principal); E78.2 Mixed hyperlipidemia; I10 Essential (primary) hypertension
CPT/HCPCS: 80053; 80061; 85025; G0103

== ENCOUNTER 2023-10-03 10:28 | Observation (INO) | payer OTHER ==
[~2023-10-03] VITALS: Ht 172.7 cm; Wt 76.4 kg
[2023-10-03] MEDS ORDERED: NS 1,000 ML IV SCH ×2 (11:05→16:45)
[2023-10-03] MEDS ORDERED: Diazepam 5 MG / ML 2ML SYR IV ONE (11:05)
[2023-10-03] MEDS ORDERED: Multivitamins 1 Tab PO ONE (11:05)
[2023-10-03 11:11] LABS: BASOPHILS ABSOLUTE AUTO 0.05 K/mm3 (0.00-0.23); BASOPHILS PERCENT AUTO 1 % (0-2); EOSINOPHILS ABSOLUTE AUTO 0.15 K/mm3 (0.00-0.68); EOSINOPHILS PERCENT AUTO 2 % (0-6); Hematocrit 43.9 % (37.0-53.0); Hemoglobin 14.6 g/dL (13.5-17.5); IMMATURE GRAN ABSOLUTE AUTO 0.04 K/mm3 (0.00-0.10); IMMATURE GRAN PERCENT AUTO 0 % (0-1); LYMPHOCYTES ABSOLUTE AUTO 2.16 K/mm3 (0.84-5.20); LYMPHOCYTES PERCENT AUTO 24 % (21-46); MONOCYTES ABSOLUTE AUTO 0.67 K/mm3 (0.16-1.47); MONOCYTES PERCENT AUTO 7 % (4-13); Mean Corpuscular HGB 30.1 pg (26.0-34.0); Mean Corpuscular HGB Conc 33.3 g/dL (31.5-36.5); Mean Corpuscular Volume 91 fL (80-100); Mean Platelet Volume 9.7 fL (9.1-12.4); NEUTROPHILS ABSOLUTE AUTO 5.98 K/mm3 (1.96-9.15); NEUTROPHILS PERCENT AUTO 66 % (41-73); Platelet Count 278 K/mm3 (150-400); RDW Coefficient Variation 13.8 % (11.7-14.2); RDW Standard Deviation 46.5 fL (35.1-46.3); Red Blood Cell Count 4.85 M/mm3 (4.30-5.90); White Blood Cell Count 9.05 K/mm3 (4.00-11.30)
[2023-10-03 11:24] LABS: Albumin, Blood 4.3 g/dL (3.4-5.0); Albumin/Globulin Ratio 1.1 (0.8-1.8); Bilirubin, Total 0.7 mg/dL (0.1-1.0); Bun/Creatinine Ratio 21.8 (12.0-20.0); Calcium, Blood 9.3 mg/dL (8.5-10.1); Creatinine, Blood 1.01 mg/dL (0.60-1.20); Globulin, Blood 3.9 g/dL (2.2-4.0); Potassium, Blood 4.8 mmol/L (3.5-5.5); Total Protein, Blood 8.2 g/dL (6.4-8.2)
[2023-10-03] MEDS ORDERED: Diazepam 5 MG Tab PO ONE (15:55)
[2023-10-03] MEDS ORDERED: Acetaminophen 325 MG TABLET PO PRN (16:40)
[2023-10-03] MEDS ORDERED: ChlordiazePOXIDE 25 MG Cap PO PRN (16:45)
[2023-10-03] MEDS ORDERED: LORazepam 2 MG/ML 1ML Injection IV PRN (16:45)
[2023-10-03] MEDS ORDERED: Metoprolol Succinate 50 MG TABCR PO SCH (17:00)
[2023-10-03] MEDS ORDERED: Lisinopril 20 MG Tab PO SCH (17:00)
[2023-10-03] MEDS ORDERED: HydrALAZINE HCl 20 MG / ML 1ML Vial IV PRN (17:00)
[2023-10-03] MEDS ORDERED: Atorvastatin 10 MG Tab PO SCH (18:00)
--- NOTE | 2023-10-03 18:24 | NUR ---
REPORT RECIEVED FROM JEREMIAS ORTIZ AT 1814.
[2023-10-03 18:32] VITALS: BP 193/115
[2023-10-03] MEDS ORDERED: Ondansetron HCl 2 MG / ML 2ML Vial ONE (18:34)
[2023-10-03] MEDS ORDERED: Ondansetron HCl 2 MG / ML 2ML Vial IV PRN (18:35)
[2023-10-03 19:06] VITALS: BP 186/120
--- NOTE | 2023-10-03 19:26 | NUR ---
ADMISSION AND SHIFT SUMMARY: PATIENT ARRIVED TO THE UNIT AROUND 182. PATIENT ALERT AND ORIENTED X4. PATIENT ABLE TO WALK FROM THE STRETCHER TO THE BED WITH MIN ASSISTANCE. PATIENT MILDLY UNSTEADY ON HIS FEET. PATIENT REPORTS NEUROPATHY AT BASELINE. PATIENT REPORTS HEADACHE AND NAUSEA. ORDER OBTAINED FOR ZOFRAN. PATIENT PROVIDED WITH ZOFRAN AND SNACK. PATIENT TOLERATING PO INTAKE. IV FLUIDS STARTED PER ORDERS. PATIENT IS HAVING SOME TREMORS. HE IS ABLE TO PERFORM FINE MOTOR SKILLS, SUCH EATING AND DRINKING. PATIENT IS LEGALLY BLIND IN LEFT EYE. PATIENT REPORTS DIFFICULTY SEEING WITHOUT HIS READING GLASSES. RESPIRATORY: PATIENT STABLE ON ROOM AIR WITH SPO2 >94%. PATIENT DENIES SHORTNESS OF BREATH OR DIFFICULTY BREATHING. CARDIAC: PATIENT HAS ELEVATED BP (SBP IN THE 180S) AND ELEVATED HR (120S). PATIENT RECEIVED HOME BP MEDICATIONS IN THE ER PRIOR TO ADMISSION. WILL CONTINUE TO MONITOR. PATIENT HAS A PROMINENT MURMUR. PATIENT REPORTING ONGOING RIGHT LOWER CHEST PAIN. GI/:PATIENT DENIES DIFFICULTY VOIDING. PATIENT REPORTS LAST TIME HE WENT THROUGH WITHDRAWLY HE HAD UNCONTROLLABLE STOOL. BRIEF IN PLACE. EDUCATED PATIENT ON IMPORTANCE OF CALLING WHEN GETTING OUT OF BED. PATIENT REPORTS UNDERSTANDING. BED ALARM ON. PSYCHSOCIAL: PATIENT CALM AND COOPERATIVE. PATIENT APPRECIATIVE OF CARE. PATIENT REPORTS LOSS OF JOB A FEW MONTHS AGO AND REPORTS THAT FINANCES WILL SOON BE A MAJOR CONCERN FOR HE AND HIS . THEY OWN THEIR OWN HOME AND ARE ABLE TO AFFORD FOOD AND UTILITIES AT THIS TIME.
[2023-10-03 19:44] VITALS: BP 189/92
[2023-10-03 19:44] LABS: International Normalized Ratio 0.94; Prothrombin Time Results 10.1 Sec (9.7-11.5)
[2023-10-03] MEDS ORDERED: Warfarin Sodium 5 MG Tab PO ONE (20:05)
[2023-10-03] MEDS ORDERED: TraZODone HCl 50 MG Tab PO SCH (21:00)
[2023-10-03] MEDS ORDERED: Gabapentin 300 MG Cap PO SCH (21:00)
[2023-10-03 21:31] VITALS: BP 141/67
[2023-10-03 23:48] VITALS: BP 128/66
[2023-10-04] MEDS ORDERED: Thiamine HCl 250 MG in NS 100 ML IV SCH
--- NOTE | 2023-10-04 01:42 | NUR ---
SHIFT SUMMARY PATIENT BEGAN THE SHIFT HYPERTENSIVE, TACHYCARDIC, AND ANXIOUS. PRN HYDRALAZINE GIVEN FOR HTN, PRN LIBRIUM/ATIVAN GIVEN FOR ANXIETY AND WITHDRAWAL SYMPTOMS FOR CIWA SCORE OF 10-14. ORDER FOR TRAZODONE OBTAINED FROM IT NETWORK ARCHITECT MD DUE TO PATIENT COMPLAINT OF INSOMNIA + HE TAKES THIS AT HOME. PATIENT NOW RESTING COMFORTABLY, BP IMPROVED, NO LONGER SCORING HIGH ON CIWA. A&OX4, MAINTAINING O2 SATS ON RA. NSR ON TELE, NO LONGER COMPLAINING OF HEADACHE. CAME IN COMPLAINING OF CHEST PAIN, DENIES CHEST PAIN AT THIS TIME AND TROPS NEG. TOLERATING A CONSISTENT CARB DIET, NO LONGER NAUSEATED. NS RUNNING AT 100/HR, PATIENT VOIDING SBA TO BATHROOM.
[2023-10-04 02:10] LABS: BASOPHILS ABSOLUTE AUTO 0.03 K/mm3 (0.00-0.23); BASOPHILS PERCENT AUTO 1 % (0-2); EOSINOPHILS ABSOLUTE AUTO 0.35 K/mm3 (0.00-0.68); EOSINOPHILS PERCENT AUTO 7 % (0-6); Hematocrit 33.2 % (37.0-53.0); Hemoglobin 11.6 g/dL (13.5-17.5); IMMATURE GRAN ABSOLUTE AUTO 0.03 K/mm3 (0.00-0.10); IMMATURE GRAN PERCENT AUTO 1 % (0-1); LYMPHOCYTES ABSOLUTE AUTO 1.81 K/mm3 (0.84-5.20); LYMPHOCYTES PERCENT AUTO 35 % (21-46); MONOCYTES ABSOLUTE AUTO 0.59 K/mm3 (0.16-1.47); MONOCYTES PERCENT AUTO 11 % (4-13); Mean Corpuscular HGB 30.9 pg (26.0-34.0); Mean Corpuscular HGB Conc 34.9 g/dL (31.5-36.5); Mean Corpuscular Volume 89 fL (80-100); Mean Platelet Volume 10.5 fL (9.1-12.4); NEUTROPHILS ABSOLUTE AUTO 2.42 K/mm3 (1.96-9.15); NEUTROPHILS PERCENT AUTO 46 % (41-73); Platelet Count 197 K/mm3 (150-400); RDW Coefficient Variation 13.6 % (11.7-14.2); RDW Standard Deviation 44.1 fL (35.1-46.3); Red Blood Cell Count 3.75 M/mm3 (4.30-5.90); White Blood Cell Count 5.23 K/mm3 (4.00-11.30)
[2023-10-04 02:29] LABS: Albumin, Blood 3.2 g/dL (3.4-5.0); Albumin/Globulin Ratio 1.1 (0.8-1.8); Bilirubin, Total 0.9 mg/dL (0.1-1.0); Bun/Creatinine Ratio 22.7 (12.0-20.0); Calcium, Blood 8.2 mg/dL (8.5-10.1); Creatinine, Blood 1.1 mg/dL (0.60-1.20); Potassium, Blood 4.6 mmol/L (3.5-5.5)
[2023-10-04 02:30] LABS: Total Protein, Blood 6.2 g/dL (6.4-8.2)
[2023-10-04 03:37] VITALS: BP 103/69
[2023-10-04] MEDS ORDERED: Insulin Regular 100 UNIT/ML 10ML Vial SC SCH (07:30)
[2023-10-04 07:32] VITALS: BP 110/78
[2023-10-04] MEDS ORDERED: Enoxaparin 40 MG/0.4 ML SYR SC SCH (09:00)
[2023-10-04] MEDS ORDERED: Folic Acid 1 MG in NS 50 ML IV SCH (09:00)
[2023-10-04] MEDS ORDERED: Metoprolol Succinate 50 MG TABCR PO SCH (09:00)
[2023-10-04] MEDS ORDERED: Lisinopril 20 MG Tab PO SCH (09:00)
[2023-10-04] MEDS ORDERED: FLUoxetine HCl 10 MG Cap PO SCH (09:00)
[2023-10-04] MEDS ORDERED: HydrALAZINE HCl 20 MG / ML 1ML Vial IV PRN (10:30)
[2023-10-04 12:09] VITALS: BP 124/93
[2023-10-04 16:21] VITALS: BP 119/77
--- NOTE | 2023-10-04 17:54 | NUR ---
SHIFT SUMMARY PT ALERT, ORINETED X4; ANXIOUS AT TIMES, COOPERATIVE WITH CARE. PT UP IN RECLINER FOR MAJORITY OF SHIFT, UP WITH 1 PERSON ASSIST. PT REPORTING HEADACHE AND NAUSEA; INTERMITTENT TREMORS NOTED; CIWA 4-10 T/O SHIFT, MEDICATED PER EMAR. PT DENIES CHEST PAIN/PRESSURE, SOB, DIZZINESS AND NUMB/TINGLING. TELE SINUS, BP STABLE. SPO2 >90% ON RA, BREATHING EVEN AND UNLABORED. ABD MILD DISTENDED, SOFT, NONTENDER, +BT. COMPLETED FIRST PORTION OF STRESS TEST THIS AFTERNOON, SECOND PORTION TOMORROW; NPO AT MIDNIGHT. OTHER VSS. NO OTHER VSS. WILL CONTINUE TO MONITOR.
[2023-10-04 19:40] VITALS: BP 141/87
[2023-10-04 23:30] VITALS: BP 138/89
[2023-10-05 03:11] VITALS: BP 138/95
--- NOTE | 2023-10-05 03:42 | NUR ---
Patient update Patient has been sleeping comfortably all night, was woken up by this RN around 0300 due to desats in O2- 70% on RA. Patient was experiencing an episode of apnea. He said he was dreaming that he was drowning in water. Now O2 sats read 98% on RA and in no apparent distress. 15 min later he called this RN back into the room, saying he was having 5/10 chest pain. EKG performed per protocol- no abnormalities. AM labs just drawn. Zofran given for complaints of nausea, tylenol given for complaints of headache, and librium given for possible withdrawal symptoms. Was scoring 2-5 on CIWA throughout the night, now scoring a 7 due to these subjective symptoms. Patient checked on again around 0340, no longer having chest pain or nausea, headache improved. Patient says he would like to try to go back to sleep. VSS. NPO for 2nd portion of stress test this AM. Patient would like the doctor to order something for his chronic heartburn issue today, says at home he often has heartburn which radiates up his esophagus, sometimes irritating his epiglottis and causing him to aspirate. He has not had an EGD/Colonoscopy in over 10 years.
[2023-10-05 03:54] LABS: BASOPHILS ABSOLUTE AUTO 0.01 K/mm3 (0.00-0.23); BASOPHILS PERCENT AUTO 0 % (0-2); EOSINOPHILS ABSOLUTE AUTO 0.25 K/mm3 (0.00-0.68); EOSINOPHILS PERCENT AUTO 7 % (0-6); Hematocrit 32.7 % (37.0-53.0); Hemoglobin 10.9 g/dL (13.5-17.5); IMMATURE GRAN ABSOLUTE AUTO 0.01 K/mm3 (0.00-0.10); IMMATURE GRAN PERCENT AUTO 0 % (0-1); LYMPHOCYTES ABSOLUTE AUTO 1.13 K/mm3 (0.84-5.20); LYMPHOCYTES PERCENT AUTO 32 % (21-46); MONOCYTES ABSOLUTE AUTO 0.35 K/mm3 (0.16-1.47); MONOCYTES PERCENT AUTO 10 % (4-13); Mean Corpuscular HGB 30.4 pg (26.0-34.0); Mean Corpuscular HGB Conc 33.3 g/dL (31.5-36.5); Mean Corpuscular Volume 91 fL (80-100); Mean Platelet Volume 10.9 fL (9.1-12.4); NEUTROPHILS PERCENT AUTO 51 % (41-73); Platelet Count 152 K/mm3 (150-400); RDW Coefficient Variation 13.7 % (11.7-14.2); RDW Standard Deviation 46.2 fL (35.1-46.3); Red Blood Cell Count 3.59 M/mm3 (4.30-5.90); White Blood Cell Count 3.55 K/mm3 (4.00-11.30)
--- NOTE | 2023-10-05 04:08 | NUR ---
SHIFT SUMMARY PATIENTS VSS ON RA BESIDES ONE EPISODE OF APNEA DURING THE NIGHT WHICH SELF CORRECTED. PATIENT REQUIRED LESS LIBRIUM THIS SHIFT DUE TO AN IMPROVEMENT IN HIS WITHDRAWAL SYMPTOMS IN COMPARISON TO LAST NIGHT. PATIENT DID ENDORSE CP AROUND 0300, EKG PERFORMED PER PROTOCOL. CP DISSIPATED ON ITS OWN SHORTLY AFTER. PATIENT WALKED AROUND THE UNIT X1 ON NIGHTS, DID WELL THOUGH SOME GENERAL WEAKNESS PRESENT, PT EVAL PENDING TODAY. GOOD URINE OUTPUT- VOIDING VIA URINAL. NPO FOR 2ND PORTION OF STRESS TEST THIS AM. A&OX4, NSR ON TELEMETRY WITHOUT ECTOPY. NS INFUSING AT 100ML/HR THROUGH LFA 18G WHICH IS WNL.
[2023-10-05 04:18] LABS: Bun/Creatinine Ratio 26.5 (12.0-20.0); Calcium, Blood 8.2 mg/dL (8.5-10.1); Creatinine, Blood 1.02 mg/dL (0.60-1.20); Potassium, Blood 4.5 mmol/L (3.5-5.5)
[2023-10-05 07:23] VITALS: BP 121/84
[2023-10-05] MEDS ORDERED: Aspirin 81 MG Chew PO SCH (09:00)
[2023-10-05 11:59] VITALS: BP 128/81
[2023-10-05] MEDS ORDERED: Caffeine Citrated 60 MG/3 ML Vial ONE (14:02)
[2023-10-05] MEDS ORDERED: Regadenoson 0.4 MG/5 ML SYRINGE ONE (14:02)
[2023-10-05 15:24] VITALS: BP 142/90
--- NOTE | 2023-10-05 18:19 | NUR ---
SHIFT SUMMARY PT ALERT, ORIENTEDX4; ANXIOUS AT TIMES, COOPERATIVE WITH CARE. PT UP IN THE RECLINER WITH 1 PERSON ASSIST. PT REPORTING HEADACHE T/O SHIFT, MEDICATED PER EMAR. CIWA 2-12 T/O SHIFT, MEDICATED PER EMAR. PT REPORTING CHEST ACHE IN LOWER LEFT CHEST, RESOLVED ON OWN. PT DENIES SOB, NAUSEA, DIZZINESS AND NUMB/TINGLING. TELE SINUS 70, BP ELEVATED POST STRESS TEST. STRESS TEST RESULTS CALLED TO MD. SPO2 >90% ON RA, BREATHING EVEN AND UNALBORED. ABD SOFT, NONTENDER, +BT T/O, NO BM SINCE 10/02/23 NOTIFIED MD, NEW ORDERS ENTERED. OTHER VSS. NO OTHER ACUTE CHANGES NOTED. WILL CONTINUE TO MONITOR.
[2023-10-05] MEDS ORDERED: NS 250 ML IV PRN (18:20)
[2023-10-05 19:58] VITALS: BP 156/97
[2023-10-05] MEDS ORDERED: Sennosides 8.6 MG Tab PO SCH (21:00)
[2023-10-06 00:04] VITALS: BP 147/92
--- NOTE | 2023-10-06 00:42 | NUR ---
PATIENT ASLEEPING BUT VERY RESTLESS. O2 SAT NOTED TO BE 82/85%. OXYGEN APPLIED TO FACE WITHOUT DIFFICULTY. PATIENT WITH TREMULOUS HANDS, AND SLIGHT HEADACHE. MEDICATED WITH ATIVAN FOR BOTH AND AWAITING RESULTS. IV LEAKING IN LT ARM, NEW IV STARTED IN RT. ARM WITHOUT DIFFICULTY.
[2023-10-06 07:51] VITALS: BP 151/85
[2023-10-06 11:57] VITALS: BP 154/90
[2023-10-06] MEDS ORDERED: ASPI81CH PO (14:44)
[2023-10-06] MEDS ORDERED: Acetaminophen650 M1 PO (14:44)
[2023-10-06] MEDS ORDERED: ATOR20 PO (14:45)
[2023-10-06] MEDS ORDERED: GABA300 PO (14:45)
[2023-10-06] MEDS ORDERED: TAMS.4ER PO (14:46)
[2023-10-06] MEDS ORDERED: SENN187 PO (14:46)
[2023-10-06] MEDS ORDERED: FOLI1 PO (14:46)
--- NOTE | 2023-10-06 15:23 | NUR ---
DISCHARGE SUMMARY PT ALERT, ORIENTED X4; ANXIOUS AT TIMES, COOPERATIVE WITH CARE. PT UP IN CHAIR, 1 PERSON ASSIST. PT REPORTING HEADACHE T/O SHIFT, MEDICATED PER EMAR. CIWA 7-9 DURING SHIFT. PT DENIES CHEST PAIN/PRESSURE, SOB, NAUSEA, DIZZINESS. PT REPROTS NUMB/TINGLING TO BOTTOM ON FEET/TOES; PT STATES HIS BASELINE. TELE SINUS 60-80'S, BP ELVATED; MD AWARE. SPO2 >90% ON RA. ABD SOFT, NONTENDER, +BT. NO OTHER ACUTE CHANGES NOTED. PT OFFERED HOME HEALTH, EDUCATED BY CARE MANAGEMENT AND THIS RN, PT HAS REFUSED HOME HEALTH. PT EDUCATED ON DISCHARGE INSTRUCTIONS, ALCOHOL CESSATION (RESOURCES PROVIDED), MEDICATIONS AND FOLLOW UP APPOINTMENTS. PRESCRIPTIONS FAXED TO [facility], PER PT REQUEST. PT EXPRESSES CONCERN REGARDING STOPPING HCTZ AT HOME, STATING HE STARTED THAT TO HELP HIS BP; DISCUSSED WITH DR CORREA, PLANS TO D/C AND FOLLOW UP AND PCP MAY RESTART, PT DEHYDRATED UPON ADMISSION. CBG ELEVATED, MD AWARE. NO OTHER ACUTE CHANGES. PT READY TO D/C HOME, AWAITING RIDE.
== END 2023-10-06 15:43 | disposition home or self-care (01) ==
LOC: ER 10:28 → PCU 10:29
PROVIDERS: Student in an Organized Health Care Education/Training Program; ADMIT Internal Medicine
DX: R07.89 Other chest pain (principal); E87.21 Acute metabolic acidosis; F10.129 Alcohol abuse with intoxication, unspecified; F10.139 Alcohol abuse with withdrawal, unspecified; D68.59 Other primary thrombophilia; R13.10 Dysphagia, unspecified; I10 Essential (primary) hypertension; E11.9 Type 2 diabetes mellitus without complications; Z87.891 Personal history of nicotine dependence; Z88.8 Allergy status to other drugs, medicaments and biological substances; Z79.84 Long term (current) use of oral hypoglycemic drugs; Z79.899 Other long term (current) drug therapy
CPT/HCPCS: 36415; 70450; 74230; 78452; 80048; 80053; 82947; 84484; 85025; 85610; 92610; 92611; 93005; 93010; 93017; 94760; 96361; 96365; 96366; 96367; 96374; 96375; 96376; 97110; 97162; 99285-25; A9270; A9500; G0378; J0360; J0706; J1815; J2060; J2405; J2785; J3360; J3411; J7030; J7050

== ENCOUNTER 2023-11-07 17:12 | Emergency (ER) | payer OTHER ==
[~2023-11-07] VITALS: Ht 172.7 cm; Wt 74.8 kg
[~2023-11-07 17:12] MED LIST changes: +ASPI81CH PO; +ATOR20 PO; +Acetaminophen650 M1 PO; +FOLI1 PO; +SENN187 PO; +TAMS.4ER PO
[2023-11-07 18:40] LABS: BASOPHILS ABSOLUTE AUTO 0.11 K/mm3 (0.00-0.23); BASOPHILS PERCENT AUTO 1 % (0-2); EOSINOPHILS ABSOLUTE AUTO 0.04 K/mm3 (0.00-0.68); EOSINOPHILS PERCENT AUTO 0 % (0-6); Hematocrit 42.5 % (37.0-53.0); Hemoglobin 15.2 g/dL (13.5-17.5); IMMATURE GRAN ABSOLUTE AUTO 0.04 K/mm3 (0.00-0.10); IMMATURE GRAN PERCENT AUTO 0 % (0-1); LYMPHOCYTES PERCENT AUTO 28 % (21-46); MONOCYTES ABSOLUTE AUTO 0.88 K/mm3 (0.16-1.47); MONOCYTES PERCENT AUTO 8 % (4-13); Mean Corpuscular HGB 31.9 pg (26.0-34.0); Mean Corpuscular HGB Conc 35.8 g/dL (31.5-36.5); Mean Corpuscular Volume 89 fL (80-100); Mean Platelet Volume 10.1 fL (9.1-12.4); NEUTROPHILS ABSOLUTE AUTO 6.61 K/mm3 (1.96-9.15); NEUTROPHILS PERCENT AUTO 62 % (41-73); Platelet Count 350 K/mm3 (150-400); RDW Coefficient Variation 14.6 % (11.7-14.2); RDW Standard Deviation 47.8 fL (35.1-46.3); Red Blood Cell Count 4.76 M/mm3 (4.30-5.90); White Blood Cell Count 10.68 K/mm3 (4.00-11.30)
[2023-11-07 19:02] LABS: Albumin, Blood 4.7 g/dL (3.4-5.0); Albumin/Globulin Ratio 1.2 (0.8-1.8); Bilirubin, Total 0.9 mg/dL (0.1-1.0); Bun/Creatinine Ratio 22.5 (12.0-20.0); Calcium, Blood 9.2 mg/dL (8.5-10.1); Creatinine, Blood 1.6 mg/dL (0.60-1.20); Total Protein, Blood 8.7 g/dL (6.4-8.2)
[2023-11-07] MEDS ORDERED: NS 1,000 ML IV SCH (20:50)
[2023-11-07 21:32] LABS: Source, Urine Clean Catch
[2023-11-07 21:35] LABS: Appearance, Urine Clear (Clear); Bilirubin, Urine Neg (Neg); Blood, Urine 2+ (Neg); Color, Urine Yellow (P-Yellow); Glucose Qualitative, Urine 4+ (Neg); Ketones, Urine 1+ (Neg); Leukocyte Esterase, Urine Neg (Neg); Nitrite, Urine Neg (Neg); Protein, Urine 2+ (Neg); Urobilinogen, Urine NORM (Normal)
[2023-11-07 21:43] LABS: Amorphous Light (0-Heavy); Bacteria Few /hpf; Hyaline Casts 0-2 /lpf (0-2); Red Blood Cells, Urine 0-2 /hpf (0-2); Squamous Epithelial Cells Few /hpf (Few); White Blood Cells, Urine 0-2 /hpf (0-5)
[2023-11-07 21:49] LABS: U Amphetamine Screen Not Detected; U Barbituate Screen Not Detected; U Benzodiazapine Screen Not Detected; U Buprenorphine Screen Not Detected; U Cannabinoids Screen Not Detected; U Cocaine Screen Not Detected; U Methadone Screen Not Detected; U Methamphetamine Screen Not Detected; U Opiates Screen Not Detected; U Oxycodone Screen Not Detected; U Phencyclidine Screen Not Detected
[2023-11-07 23:55] VITALS: BP 142/78
== END 2023-11-07 23:57 | disposition home or self-care (01) ==
LOC: ER 17:12
PROVIDERS: Physician Assistant
DX: K29.20 Alcoholic gastritis without bleeding (principal); R07.9 Chest pain, unspecified; F10.10 Alcohol abuse, uncomplicated; Y90.8 Blood alcohol level of 240 mg/100 ml or more; Z88.8 Allergy status to other drugs, medicaments and biological substances; Z79.899 Other long term (current) drug therapy; Z79.84 Long term (current) use of oral hypoglycemic drugs; Z79.82 Long term (current) use of aspirin; I10 Essential (primary) hypertension; E11.9 Type 2 diabetes mellitus without complications
CPT/HCPCS: 80053; 80320; 81001; 84484; 85025; 93005; 93010; 96360; 99285-25; J7030

== ENCOUNTER 2023-11-30 00:17 | Emergency (ER) | payer OTHER ==
[~2023-11-30] VITALS: Ht 172.7 cm; Wt 75.3 kg
[2023-11-30] MEDS ORDERED: STEGLATRO15 MG PO (02:27)
[2023-11-30] MEDS ORDERED: THIAMINE HCL (02:28)
[2023-11-30] MEDS ORDERED: Mag Hydrox/AL Hydrox/Simeth 30 ML UDC PO ONE (02:30)
[2023-11-30 02:48] LABS: BASOPHILS ABSOLUTE AUTO 0.05 K/mm3 (0.00-0.23); BASOPHILS PERCENT AUTO 1 % (0-2); EOSINOPHILS ABSOLUTE AUTO 0.44 K/mm3 (0.00-0.68); EOSINOPHILS PERCENT AUTO 4 % (0-6); Hematocrit 35.4 % (37.0-53.0); Hemoglobin 12.2 g/dL (13.5-17.5); IMMATURE GRAN ABSOLUTE AUTO 0.03 K/mm3 (0.00-0.10); IMMATURE GRAN PERCENT AUTO 0 % (0-1); LYMPHOCYTES ABSOLUTE AUTO 1.94 K/mm3 (0.84-5.20); LYMPHOCYTES PERCENT AUTO 18 % (21-46); MONOCYTES ABSOLUTE AUTO 0.68 K/mm3 (0.16-1.47); MONOCYTES PERCENT AUTO 6 % (4-13); Mean Corpuscular HGB 31.9 pg (26.0-34.0); Mean Corpuscular HGB Conc 34.5 g/dL (31.5-36.5); Mean Corpuscular Volume 93 fL (80-100); Mean Platelet Volume 11.9 fL (9.1-12.4); NEUTROPHILS ABSOLUTE AUTO 7.49 K/mm3 (1.96-9.15); NEUTROPHILS PERCENT AUTO 70 % (41-73); Platelet Count 147 K/mm3 (150-400); RDW Coefficient Variation 13.6 % (11.7-14.2); RDW Standard Deviation 46.1 fL (35.1-46.3); Red Blood Cell Count 3.82 M/mm3 (4.30-5.90); White Blood Cell Count 10.63 K/mm3 (4.00-11.30)
[2023-11-30 03:04] LABS: Albumin, Blood 4.1 g/dL (3.4-5.0); Albumin/Globulin Ratio 1.3 (0.8-1.8); Bilirubin, Total 0.4 mg/dL (0.1-1.0); Bun/Creatinine Ratio 32.9 (12.0-20.0); Calcium, Blood 9.2 mg/dL (8.5-10.1); Creatinine, Blood 1.7 mg/dL (0.60-1.20); Globulin, Blood 3.1 g/dL (2.2-4.0); Potassium, Blood 5.4 mmol/L (3.5-5.5); Total Protein, Blood 7.2 g/dL (6.4-8.2)
[2023-11-30 03:30] VITALS: BP 101/65
[2023-11-30] MEDS ORDERED: Pantoprazole Sodium 40 MG Injection IV ONE (04:35)
[2023-11-30] MEDS ORDERED: OMEP20ER PO (04:49)
[2023-11-30] MEDS ORDERED: SUCR1 PO (04:49)
== END 2023-11-30 05:02 | disposition home or self-care (01) ==
LOC: ER 00:17
PROVIDERS: Student in an Organized Health Care Education/Training Program
DX: K21.9 Gastro-esophageal reflux disease without esophagitis (principal); Z88.8 Allergy status to other drugs, medicaments and biological substances; Z79.899 Other long term (current) drug therapy; Z79.84 Long term (current) use of oral hypoglycemic drugs; Z79.82 Long term (current) use of aspirin; I10 Essential (primary) hypertension; E11.9 Type 2 diabetes mellitus without complications
CPT/HCPCS: 71045; 80053; 84484; 85025; 93005; 93010; 96374; 99284-25; A9270; J2470